=== PATIENT | male | born 1990 | race African-American/Black ===

== ENCOUNTER 2017-02-13 19:19 | Emergency (ER) | payer SELFPAY ==
[~2017-02-13] VITALS: Ht 185.4 cm; Wt 90.7 kg
== END 2017-02-13 22:31 | disposition home or self-care (01) ==
LOC: ED 19:19
DX: S31.821A Laceration without foreign body of left buttock, initial encounter (principal); F12.10 Cannabis abuse, uncomplicated; W18.30XA Fall on same level, unspecified, initial encounter; Y93.89 Activity, other specified; Y92.9 Unspecified place or not applicable; Y99.9 Unspecified external cause status